=== PATIENT | male | born 1985 | race African-American/Black ===

== ENCOUNTER 2018-12-04 16:02 | Emergency (ER) | payer SELFPAY ==
[~2018-12-04] VITALS: Ht 172.7 cm; Wt 62.0 kg
[2018-12-04 16:08] VITALS: BP 145/76; PULSE 86; RESP 18; Ht 172.7 cm; Wt 62.0 kg
== END 2018-12-04 18:45 | disposition left against medical advice (07) ==
LOC: FTE 16:02
DX: Z53.21 Procedure and treatment not carried out due to patient leaving prior to being seen by health care provider (principal)

== ENCOUNTER 2018-12-14 16:02 | Emergency (ER) | payer OTHER ==
[~2018-12-14] VITALS: Ht 180.3 cm; Wt 68.4 kg
[2018-12-14 16:22] VITALS: BP 153/79; PULSE 99; RESP 18; Ht 180.3 cm; Wt 68.4 kg
[2018-12-14] MEDS ORDERED: LIDOCAINE 1% (MPF) 5 ML VIAL INFIL ONE (18:00)
[2018-12-14] MEDS ORDERED: TRIMETHOPRIM/SULFAMETHOX (DS) TAB PO ONE (18:00)
[2018-12-14] MEDS ORDERED: MUPIROCIN 2% 22 GM OINT TOP ONE (18:00)
[2018-12-14] MEDS ORDERED: CEFTRIAXONE 1 GM INJ IM ONE (18:00)
[2018-12-14] MEDS ORDERED: SULF1TAB31 PO (19:05)
[2018-12-14] MEDS ORDERED: CEPH-443 PO (19:05)
[2018-12-14] MEDS ORDERED: ELVI1TAB3 PO (19:19)
--- NOTE | 2018-12-14 21:30 | ERD ---
ER Documentation Chief Complaint Chief Complaint pt bib self with c/o "boils popping up all over body" x few days HPI 33 year-old [male] coming in today with Chief Complaint: Skin infection History of Present Illness: Patient coming in today due to skin infection. Reports "boils" on several parts of his body. Reports he has had abscesses before and had them drained. Denies any systemic symptoms, denies any other associated symptoms. Review of systems: All systems were reviewed and are negative except for what is indicated in the history of present illness. Past Medical History: HIV; patient reports not currently on antivirals for the past 4 months. 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 Medications Home Meds Active Scripts Elviteg/Tova/Emtric/Tenofo Ala (Genvoya Tablet) 1 Each Tablet, 1 EACH PO DAILY, #7 TAB Prov:IRMA VALENZUELAA V EVP GENERAL COUNSEL 12/14/18 Cephalexin* (Keflex*) 500 Mg Capsule, 500 MG PO QID for skin infection for 10 Days, CAP Prov:VALENZUELA,SARAH V EVP GENERAL COUNSEL 12/14/18 Sulfamethoxazole/Trimethoprim* (Bactrim Ds* Tablet) 1 Each Tablet, 1 TAB PO BID for skin infection for 10 Days, #14 TAB Prov:BIANCASARAH V EVP GENERAL COUNSEL 12/14/18 Allergies Allergies: Coded Allergies: No Known Allergy (Unverified , 12/14/18) PMhx/Soc Medical and Surgical Hx: pt denies Medical Hx, pt denies Surgical Hx Hx Miscellaneous Medical Probl: Yes (HIV) Hx Alcohol Use: No Hx Substance Use: Yes (Crystal Meth) Hx Tobacco Use: No Smoking Status: Never smoker FmHx Family History: diabetes; No coronary disease Physical Exam Vitals Vital Signs Date Temp Pulse Resp B/P (MAP) Pulse Ox O2 O2 Flow FiO2 Time Delivery Rate 12/14/18 99 18 153/79 99 16:22 (103) Physical Exam Const: No acute distress Head: Atraumatic, 3 possible abscesses noted to forehead and along frontal and posterior hairline, firm. no discharge, no erythema, no fluctuance, no cellulitis Eyes: Normal Conjunctiva ENT: Normal External Ears, Nose and Mouth. Neck: Full range of motion. No meningismus. Resp: Clear to auscultation bilaterally Cardio: Regular rate and rhythm, no murmurs Abd: Soft, non tender, non distended. Normal bowel sounds Skin: No petechiae or rashes; abscess noted to right abdominal area, positive purulent fluid draining, positive fluctuance, positive erythema, no cellulitis; abscess noted to left abdominal area, no purulent fluid draining, no erythema, no cellulitis; abscess noted to right chauhan, purulent draining, mild erythema, no cellulitis Back: No midline or flank tenderness Ext: No cyanosis, or edema Neur: Awake and alert Psych: Normal Mood and Affect Results 24 hrs Current Medications Medications Dose Sig/Penny Start Time Status Last (Trade) Ordered Route PRN Stop Time Admin Dose Reason Admin Mupirocin 3 applic ONCE ONCE 12/14/18 DC 12/14/18 (Bactroban) TOP 18:00 12/14/18 18:37 18:01 Ceftriaxone 1 gm ONCE ONCE 12/14/18 DC 12/14/18 Sodium IM 18:00 12/14/18 18:12 (Rocephin) 18:01 Lidocaine 2.1 ml ONCE ONCE 12/14/18 DC 12/14/18 (Xylocaine INFIL 18:00 12/14/18 18:11 1% (Mpf)) 18:01 1 tab ONCE ONCE 12/14/18 DC 12/14/18 Trimethoprim/ PO 18:00 12/14/18 18:11 18:01 Sulfamethoxaz ole (Bactrim (Ds)) Procedures/MDM ED course includes a thorough examination and history. ED course includes medications; ceftriaxone and Bactrim. ED course includes wound cultures. Low suspicion for life-threatening medical emergency or sepsis. Otherwise healthy patient presenting with constellation of symptoms likely representing multiple skin abscesses secondary to HIV infection as characterized by history, physical exam findings. Patient refused incision and drainage of abscesses, states he just wants antibiotics. Educated on risks and benefits of abscess drainage; still refuses. Reports he has not been on HIV medications for 4 months, desires community mental health social worker consult so he can get restarted. Patient reassessment at 1900: Wound care complete per order. Will apply dressings to wounds. Patient currently homeless so desires to have wounds cov ered up. Patient reassessment at 1945: Charge nurse to bedside. Patient reports desiring to want to stay until he is seen by elementary school social worker. states he does not want to be discharged yet. No respiratory distress and nontoxic. Patient educated on diagnoses, prescriptions, follow-up care, return precautions. Restarted patient on 1 week supply of his previous antiviral for HIV. Strict return precautions given for worsening condition; questions answered discharge. Disposition for discharge after community mental health social worker consult with followup in 2-3 days with PCP/clinic. Patient reassessment at 2100: Patient appears to have eloped. Patient previously given resources for HIV clinics in the [facility], by me. Departure Diagnosis: Primary Impression: Abscess of skin Site of cutaneous abscess: unspecified site Qualified Codes: L02.91 - Cutaneous abscess, unspecified Additional Impression: HIV (human immunodeficiency virus infection) HIV symptom status: unspecified Qualified Codes: B20 - Human immunodeficiency virus [HIV] disease Condition: Fair Patient Instructions: Abscess, Incision And Drainage Referrals: [facility] YOU HAVE RECEIVED A MEDICAL SCREENING EXAM AND THE RESULTS INDICATE THAT YOU DO NOT HAVE A CONDITION THAT REQUIRES URGENT TREATMENT IN THE EMERGENCY DEPARTMENT. FURTHER EVALUATION AND TREATMENT OF YOUR CONDITION CAN WAIT UNTIL YOU ARE SEEN IN YOUR DOCTORS OFFICE WITHIN THE NEXT 1-2 DAYS. IT IS YOUR RESPONSIBILITY TO MAKE AN APPOINTMENT FOR FOLOW-UP CARE. IF YOU HAVE A PRIMARY DOCTOR --you should call your primary doctor and schedule an appointment IF YOU DO NOT HAVE A PRIMARY DOCTOR YOU CAN CALL OUR PHYSICIAN REFERRAL HOTLINE AT IF YOU CAN NOT AFFORD TO SEE A PHYSICIAN YOU CAN CHOSE FROM THE FOLLOWING [facility] [address] [facility] [address] [facility] [facility] [address] [facility] [address] [facility] [address] [facility]. [facility]. [address] [facility]. [facility] YOU HAVE RECEIVED A MEDICAL SCREENING EXAM AND THE RESULTS INDICATE THAT YOU DO NOT HAVE A CONDITION THAT REQUIRES URGENT TREATMENT IN THE EMERGENCY DEPARTMENT. FURTHER EVALUATION AND TREATMENT OF YOUR CONDITION CAN WAIT UNTIL YOU ARE SEEN IN YOUR DOCTORS OFFICE WITHIN THE NEXT 1-2 DAYS. IT IS YOUR RESPONSIBILITY TO MAKE AN APPOINTMENT FOR FOLOW-UP CARE. IF YOU HAVE A PRIMARY DOCTOR --you should call your primary doctor and schedule and appointment IF YOU DO NOT HAVE A PRIMARY DOCTOR YOU CAN CALL OUR PHYSICIAN REFERRAL HOTLINE AT . IF YOU CAN NOT AFFORD TO SEE A PHYSICIAN YOU CAN CHOSE FROM THE FOLLOWING [facility]: [facility] [address] [place] [address] [facility] [address] [place] [address] [facility] [address] [place] [address] Additional Instructions: Call your primary care doctor TOMORROW for an appointment during the next 2-3 days.See the doctor sooner or return here if your condition worsens before your appointment time. Due to you refusing incision and drainage of multiple abscesses, strict follow- up is encouraged in the next 2-3 days. Returns if any symptoms of fever, chills, altered mental status, worsening infection. You will need to take 2 antibiotics for 10 days. Must take all doses. Must take medication as prescribed. We are giving Genvoya for a few days until you can get with HIV clinic next week. SARAH VALENZUELA NP Dec 14, 2018 21:30
== END 2018-12-15 06:20 | disposition left against medical advice (07) ==
LOC: FTE 16:02
DX: L02.211 Cutaneous abscess of abdominal wall (principal); B20 Human immunodeficiency virus [HIV] disease
CPT/HCPCS: 87070; 96372; J0696; Z7502; Z7610

== ENCOUNTER 2019-01-01 11:34 | Emergency (ER) | payer OTHER ==
[~2019-01-01] VITALS: Ht 180.3 cm; Wt 63.8 kg
[~2019-01-01 11:34] MED LIST: CEPH-443 PO; ELVI1TAB3 PO; SULF1TAB31 PO
[2019-01-01 12:13] VITALS: BP 135/81; PULSE 78; RESP 20; Ht 180.3 cm; Wt 63.8 kg
[2019-01-01] MEDS ORDERED: DIPHENHYDRAMINE 25 MG CAP PO ONE (15:30)
[2019-01-01] MEDS ORDERED: BEN25 PO (15:43)
[2019-01-01] MEDS ORDERED: MUPI15CR9 TOP (15:43)
[2019-01-01] MEDS ORDERED: TRIA60LO10 TOP (15:43)
--- NOTE | 2019-01-01 15:46 | ERD ---
ER Documentation Chief Complaint Chief Complaint skin itchiness/rashes; ear pain ; history of HIV ; needs manager social media TRISTAN Is a 33-year-old male patient who presents to the emergency room with complaint of rash on his upper neck and legs. He was also seen here recently for some lesions to his lower legs to which he received antibiotics. Patient states that the lesion on the right leg has healed the one on the left remains open. He is also requesting manager social media for to homeless senior living HIV treatment. ROS All systems reviewed and are negative except as per history of present illness. Medications Home Meds Active Scripts Diphenhydramine Hcl* (Benadryl*) 25 Mg Cap, 25 MG PO Q6 for itching for 7 Days, #28 CAP Prov:SAMEERA RASCON NP 01/01/19 Mupirocin Calcium* (Mupirocin*) 2% - 15 Gram Cream..g., 1 APPLIC TOP BID, #21 GM Prov:SAMEERA RASCON NP 01/01/19 Triamcinolone Acetonide (Triamcinolone Acetonide) 0.025% - 60 Ml Lotion, 1 APPLIC TOP BID for rash for 14 Days, #120 GM Prov:SAMEERA RASCON NP 01/01/19 Elviteg/Tova/Emtric/Tenofo Ala (Genvoya Tablet) 1 Each Tablet, 1 EACH PO DAILY, #7 TAB Prov:SARAH VALENZUELA NP 12/14/18 Cephalexin* (Keflex*) 500 Mg Capsule, 500 MG PO QID for skin infection for 10 Days, CAP Prov:SARAH VALENZUELA NP 12/14/18 Sulfamethoxazole/Trimethoprim* (Bactrim Ds* Tablet) 1 Each Tablet, 1 TAB PO BID for skin infection for 10 Days, #14 TAB Prov:SARAH VALENUZELA V GM VIDEO 12/14/18 Allergies Allergies: Coded Allergies: No Known Allergy (Unverified , 01/01/19) PMhx/Soc Medical and Surgical Hx: pt denies Surgical Hx Hx Miscellaneous Medical Probl: Yes (HIV) Hx Alcohol Use: No Hx Substance Use: Yes (Crystal Meth) Hx Tobacco Use: No Smoking Status: Never smoker Physical Exam Vitals Vital Signs Date Temp Pulse Resp B/P (MAP) Pulse Ox O2 O2 Flow FiO2 Time Delivery Rate 01/01/19 98.1 16:40 01/01/19 98.0 78 20 135/81 100 12:13 (99) Physical Exam Const: No acute distress Head: Atraumatic, dry cracking skin on scalp and forehead. Eyes: Normal Conjunctiva, no tearing, no drainage ENT: Normal External Ears, Nose and Mouth. Pharynx pink, no lesions, no exudate Neck: Full range of motion. No meningismus. Resp: Clear to auscultation bilaterally Cardio: Regular rate and rhythm, no murmurs Abd: Soft, non tender, non distended. Normal bowel sounds Skin: No petechiae, no bruising. Skin very dry and fragile. Macular papular non-erythematous rash to back of neck, exposed areas of the forearms, exposed lower legs. 2 x 2 centimeter ulcer to anterior right tibia, wound bed clean with 100% pink clean epithelial tissue. 3 x 3 cm ulcer to left anterior tibia, wound bed with dried hardened slough. Periwound skin of both wounds non- erythematous and intact. Back: No midline or flank tenderness Ext: No cyanosis, or edema Neur: Awake and alert Psych: Normal Mood and Affect Results 24 hrs Current Medications Medications Dose Sig/Penny Start Time Status Last (Trade) Ordered Route PRN Stop Time Admin Dose Reason Admin 25 mg ONCE ONCE 01/01/19 DC 01/01/19 Diphenhydrami PO 15:30 15:39 ne HCl 01/01/19 15:31 (Benadryl) Procedures/MDM This is a 33-year-old male patient who presents with complaint of rash. He is homeless. He is also seeking HIV treatment. States he has not had any HIV medications in over 6 months. States he stopped using drugs 1 week ago and he is now ready to get clean, "I want to live." DDx: Scabies, Kaposi's sarcoma, dehydration, ectopic dermatitis, contact dermatitis, syphilis. Low suspicion for scabies due to pattern and presentation of patient's rash. Rash on exposed parts of body only such as backside of neck, lower arms, lower legs. Patient states he sleeps outside in a monalisa environment. He is known to have environmental allergens. Low suspicion of HIV related Kaposi's sarcoma. As rash is not dark, not diffuse, patient is afebrile, normal vital signs. Low suspicion for ectopic dermatitis as there are no dry areas in flexors and folds or plaque type lesions. Low suspicion for syphilis as lesions are not on palms of hands, soles of feet, no lesions present in the groin or on penis, no lesions in mouth. Contact dermatitis most likely explanation for as macular papular erythematous lesions post areas of only. Patient was provided with [place] juice and water while in emergency room. Patient appreciative of care. Patient seen by manager social media provided with resources for HIV clinic as well as appointment tomorrow at [facility] for follow-up. Departure Diagnosis: Primary Impression: Homeless Additional Impressions: HIV (human immunodeficiency virus infection) Rash Condition: Stable Patient Instructions: Self-Care for Skin Rashes Additional Instructions: Use Benadryl every 4 hours as needed for itching, use caution as this medication may make you drowsy Use the mupirocin cream to lesions on lower legs Use triamcinolone cream on neck arms and legs on areas of rash Follow-up with HIV resources provided to you by hospital manager social media Stay well-hydrated Return to the emergency room immediately for any changing or worsening of your symptoms SAMEERA RASCON NP Jan 01, 2019 15:46
== END 2019-01-01 16:40 | disposition home or self-care (01) ==
LOC: FTE 11:34
DX: B20 Human immunodeficiency virus [HIV] disease (principal); Z59.0 Homelessness
CPT/HCPCS: Z7502; Z7610; 99283

== ENCOUNTER 2019-03-25 12:57 | Emergency (ER) | payer OTHER ==
[~2019-03-25] VITALS: Ht 180.3 cm; Wt 60.6 kg
[~2019-03-25 12:57] MED LIST changes: +BEN25 PO; +MUPI15CR9 TOP; +TRIA60LO10 TOP
[2019-03-25 13:06] VITALS: BP 130/71; PULSE 94; RESP 18; Ht 180.3 cm; Wt 60.6 kg
[2019-03-25] MEDS ORDERED: CEPH-443 PO (14:22)
[2019-03-25] MEDS ORDERED: SULF1TAB31 PO (14:22)
--- NOTE | 2019-03-25 14:55 | ERD ---
ER Documentation Chief Complaint Chief Complaint abscess: leg x1mth, abdomin x3 days & rash on legs x6mths HPI 33-year-old male presenting with abscess to abdomen and leg x4 days. Patient has a history of HIV. Patient has had no fevers. He has not been using medication on the site. He has been out of his HIV medication for the last 2 weeks and is attempting to obtain a primary doctor to refill his medications. He denies any other medical problems. She is currently homeless. NKDA. Surgical history denies. Social history uses meth. ROS All systems reviewed and are negative except as per history of present illness. Medications Home Meds Active Scripts Sulfamethoxazole/Trimethoprim* (Bactrim Ds* Tablet) 1 Each Tablet, 1 TAB PO BID, #14 TAB Prov:JUAN HINKLE PA-C 03/25/19 Cephalexin* (Keflex*) 500 Mg Capsule, 500 MG PO QID for 7 Days, CAP Prov:JUAN HINKLE PA-C 03/25/19 Diphenhydramine Hcl* (Benadryl*) 25 Mg Cap, 25 MG PO Q6 for itching for 7 Days, #28 CAP Prov:SAMEERA RASCON NP 01/01/19 Mupirocin Calcium* (Mupirocin*) 2% - 15 Gram Cream..g., 1 APPLIC TOP BID, #21 GM Prov:SAMEERA RASCON NP 01/01/19 Triamcinolone Acetonide (Triamcinolone Acetonide) 0.025% - 60 Ml Lotion, 1 APPLIC TOP BID for rash for 14 Days, #120 GM Prov:SAMEERA RASCON NP 01/01/19 Elviteg/Tova/Emtric/Tenofo Ala (Genvoya Tablet) 1 Each Tablet, 1 EACH PO DAILY, #7 TAB Prov:SARAH VALENZUELA NP 12/14/18 Cephalexin* (Keflex*) 500 Mg Capsule, 500 MG PO QID for skin infection for 10 Days, CAP Prov:SARAH VALENZUELA NP 12/14/18 Sulfamethoxazole/Trimethoprim* (Bactrim Ds* Tablet) 1 Each Tablet, 1 TAB PO BID for skin infection for 10 Days, #14 TAB Prov:SARAH VALENZUELA NP 12/14/18 Allergies Allergies: Coded Allergies: No Known Allergy (Unverified , 01/01/19) PMhx/Soc Hx Miscellaneous Medical Probl: Yes (HIV) Hx Alcohol Use: No Hx Substance Use: Yes (Crystal Meth) Hx Tobacco Use: No FmHx Family History: No diabetes, No coronary disease, No other Physical Exam Vitals Vital Signs Date Temp Pulse Resp B/P (MAP) Pulse Ox O2 O2 Flow FiO2 Time Delivery Rate 03/25/19 97.9 94 18 130/71 99 13:06 (90) Physical Exam GENERAL: The patient is well-appearing, well-nourished, in no acute distress CHEST: Clear to auscultation bilaterally. There are no rales, wheezes or rhonchi. HEART: Regular rate and rhythm. No murmurs, clicks, rubs or gallops. EXTREMITIES: Equal pulses bilaterally. There is no peripheral clubbing, c yanosis or edema. No focal swelling or erythema. Full range of motion. Grossly neurovascularly intact. NEUROLOGIC: Alert and oriented. Cranial nerves II through XII intact. Motor strength in all 4 extremities with 5 out of 5 strength. Sensation grossly intact. Normal speech and gait. SKIN: Indurated abscess noted to the abdomen with mild drainage. Indurated abscess to the left leg. No active bleeding or drainage. No fluctuance. Procedures/MDM ER course: Social service consult was requested to help patient obtain evaluation HIV clinic. MDM: 33-year-old male presenting with abscesses. Patient is to follow-up with HIV clinic to obtain his medication. I will discharge with antibiotics. Patient is told symptoms change or worsen to return immediately to the ER. All questions answered at discharge Departure Diagnosis: Primary Impression: Abscess Condition: Stable Patient Instructions: Abscess, Antiobiotic Treatment Only Referrals: [facility] (PCP) Additional Instructions: FOLLOW UP WITH YOUR PRIMARY CARE PHYSICIAN TOMORROW.Return to this facility if you are not improving as expected. JUAN HINKLE PA-C Mar 25, 2019 14:55
== END 2019-03-25 16:21 | disposition left against medical advice (07) ==
LOC: FTE 12:57
DX: L02.211 Cutaneous abscess of abdominal wall (principal); Z21 Asymptomatic human immunodeficiency virus [HIV] infection status
CPT/HCPCS: 99283

== ENCOUNTER 2019-04-26 12:55 | Emergency (ER) | payer OTHER ==
[~2019-04-26] VITALS: Ht 180.3 cm; Wt 62.7 kg
[2019-04-26 13:15] VITALS: BP 143/67; PULSE 98; RESP 20; Ht 180.3 cm; Wt 62.7 kg
[2019-04-26] MEDS ORDERED: KETOROLAC 60 MG INJ IM STA (14:18)
--- NOTE | 2019-04-26 14:24 | ERD ---
ER Documentation Chief Complaint Chief Complaint buttock abscess/bilat flank pain HPI Patient is a 33 years old male with past medical history of HIV presenting to the clinic for left gluteal abscess with low back pain since yesterday. Patient reports for event of body abscess in the past. Patient fever, chills, night sweats, urinary incontinence, fecal incontinence. ROS All systems reviewed and are negative except as per history of present illness. Medications Home Meds Active Scripts Sulfamethoxazole/Trimethoprim* (Bactrim Ds* Tablet) 1 Each Tablet, 1 TAB PO BID, #14 TAB Prov:JUAN HINKLE PA-C 03/25/19 Cephalexin* (Keflex*) 500 Mg Capsule, 500 MG PO QID for 7 Days, CAP Prov:JUAN HINKLE PA-C 03/25/19 Diphenhydramine Hcl* (Benadryl*) 25 Mg Cap, 25 MG PO Q6 for itching for 7 Days, #28 CAP Prov:SAMEERA RASCON NP 01/01/19 Mupirocin Calcium* (Mupirocin*) 2% - 15 Gram Cream..g., 1 APPLIC TOP BID, #21 GM Prov:SAMEERA RASCON NP 01/01/19 Triamcinolone Acetonide (Triamcinolone Acetonide) 0.025% - 60 Ml Lotion, 1 APPLIC TOP BID for rash for 14 Days, #120 GM Prov:SAMEERA RASCON NP 01/01/19 Elviteg/Tova/Emtric/Tenofo Ala (Genvoya Tablet) 1 Each Tablet, 1 EACH PO DAILY, #7 TAB Prov:SARAH VALENZUELA NP 12/14/18 Cephalexin* (Keflex*) 500 Mg Capsule, 500 MG PO QID for skin infection for 10 Days, CAP Prov:SARAH VALENZUELA NP 12/14/18 Sulfamethoxazole/Trimethoprim* (Bactrim Ds* Tablet) 1 Each Tablet, 1 TAB PO BID for skin infection for 10 Days, #14 TAB Prov:SARAH VALENZUELA NP 12/14/18 Allergies Allergies: Coded Allergies: No Known Allergy (Unverified , 01/01/19) PMhx/Soc HIV Medical and Surgical Hx: pt denies Surgical Hx History of Surgery: No Anesthesia Reaction: No Hx Neurological Disorder: No Hx Respiratory Disorders: No Hx Cardiac Disorders: No Hx Psychiatric Problems: No Hx Miscellaneous Medical Probl: No Hx Alcohol Use: No Hx Substance Use: Yes (Crystal Meth) Hx Tobacco Use: No Smoking Status: Never smoker FmHx Family History: No diabetes, No coronary disease, No other Physical Exam Vitals Vital Signs Date Temp Pulse Resp B/P (MAP) Pulse Ox O2 O2 Flow FiO2 Time Delivery Rate 04/26/19 99.2 98 20 143/67 100 13:15 (92) Physical Exam Const: No acute distress Head: Atraumatic Eyes: Normal Conjunctiva Resp: Clear to auscultation bilaterally Cardio: Regular rate and rhythm, no murmurs Abd: Soft, non tender, non distended. Normal bowel sounds Skin: Tender nodule on the left mid gluteal region without erythema, induration, perforation noted. Back: No midline or flank tenderness. Low back tenderness. Neur: Awake and alert Psych: Normal Mood and Affect Procedures/MDM Patient was seen and evaluated for left gluteal abscess without complication. Patient was given Rocephin 1 g and Toradol 60 mg IM in ED. patient denied I&D of abscess in that he would like to try antibiotic first. Patient is stable and ready for discharge. Follow-up with PCP. Patient will be discharged with clindamycin 300 mg p.o. 3 times daily X 10 days and ibuprofen. Patient was advised to take clindamycin while standing erect with full glass of water. Patient was advised to follow-up in 2 to 3 days if abscess does not improve or worsens for I&D. Departure Diagnosis: Primary Impression: Abscess Condition: Stable Patient Instructions: Abscess, Incision And Drainage Referrals: [facility] Additional Instructions: Patient advised to return to the ED immediately for new or worsening symptoms. Patient advised to follow up with primary care provider in the next 24-48 hours. Patient verbalized understanding and agrees with treatment plan and course of action. If patient has no primary care they may follow up with [facility] + [facility] [address] [place] [id number] or [facility] [address] [place] [address] or [facility] [address] [place] [address] NESTOR HAYWOOD PA-C Apr 26, 2019 14:24
[2019-04-26] MEDS ORDERED: CLIN300C10 PO (14:25)
[2019-04-26] MEDS ORDERED: IBUP800T48 PO (14:25)
[2019-04-26] MEDS ORDERED: CEFTRIAXONE 1 GM INJ IM ONE (14:30)
[2019-04-26] MEDS ORDERED: LIDOCAINE 1% (MDV) 20 ML INJ SC ONE (14:30)
== END 2019-04-26 14:53 | disposition home or self-care (01) ==
LOC: FTE 12:55
DX: L02.31 Cutaneous abscess of buttock (principal); Z21 Asymptomatic human immunodeficiency virus [HIV] infection status
CPT/HCPCS: 96372; J0696; J1885; Z7502; Z7610

== ENCOUNTER 2019-05-13 18:31 | Emergency (ER) | payer OTHER ==
[~2019-05-13] VITALS: Ht 170.2 cm; Wt 70.0 kg
[~2019-05-13 18:31] MED LIST changes: +AMOX500C2 PO; +CLIN300C10 PO; +GABA300C PO; +IBUP-1542 PO; +IBUP800T48 PO
[2019-05-13 18:37] VITALS: Ht 170.2 cm; Wt 70.0 kg
--- NOTE | 2019-05-13 18:47 | ERD ---
ER Documentation Chief Complaint Chief Complaint leg pain x 8 months HPI The patient is a 34-year-old male, presenting to the ER because of chronic bilateral lower extremity pain for more than 8 months, has been on his feet a lot. He denies fever, chills, neck pain, chest pain, dyspnea, abdominal pain, vomiting, dysuria, diarrhea, trauma. He smokes and drinks and does illicit drug Medical history: HIV, chronic low back pain Past surgical history: None ROS All systems reviewed and are negative except as per history of present illness. Medications Home Meds Active Scripts Gabapentin* (Neurontin*) 300 Mg Capsule, 300 MG PO BID, #20 CAP Prov:ANIKA KIM MD 05/13/19 Ibuprofen* (Motrin*) 800 Mg Tab, 800 MG PO Q6H PRN for PAIN AND OR ELEVATED TEMP, #30 TAB Prov:NESTOR HAYWOOD PA-C 04/26/19 Clindamycin Hcl* (Clindamycin Hcl*) 300 Mg Capsule, 300 MG PO TID for 10 Days, CAP Prov:NESTOR HAYWOOD PA-C 04/26/19 Sulfamethoxazole/Trimethoprim* (Bactrim Ds* Tablet) 1 Each Tablet, 1 TAB PO BID, #14 TAB Prov:JUAN HINKLE PA-C 03/25/19 Cephalexin* (Keflex*) 500 Mg Capsule, 500 MG PO QID for 7 Days, CAP Prov:JUAN HINKLE PA-C 03/25/19 Diphenhydramine Hcl* (Benadryl*) 25 Mg Cap, 25 MG PO Q6 for itching for 7 Days, #28 CAP Prov:SAMEERA RASCON NP 01/01/19 Mupirocin Calcium* (Mupirocin*) 2% - 15 Gram Cream..g., 1 APPLIC TOP BID, #21 GM Prov:SAMEERA RASCON NP 01/01/19 Triamcinolone Acetonide (Triamcinolone Acetonide) 0.025% - 60 Ml Lotion, 1 APPLIC TOP BID for rash for 14 Days, #120 GM Prov:SAMEERA RASCON NP 01/01/19 Elviteg/Tova/Emtric/Tenofo Ala (Genvoya Tablet) 1 Each Tablet, 1 EACH PO DAILY, #7 TAB Prov:SARAH VALENZUELA NP 12/14/18 Cephalexin* (Keflex*) 500 Mg Capsule, 500 MG PO QID for skin infection for 10 Days, CAP Prov:SARAH VALENZUELA [employer] 12/14/18 Sulfamethoxazole/Trimethoprim* (Bactrim Ds* Tablet) 1 Each Tablet, 1 TAB PO BID for skin infection for 10 Days, #14 TAB Prov:SARAH VALENZUELA [employer] 12/14/18 Allergies Allergies: Coded Allergies: No Known Allergy (Unverified , 01/01/19) PMhx/Soc History of Surgery: No Anesthesia Reaction: No Hx Neurological Disorder: No Hx Respiratory Disorders: No Hx Cardiac Disorders: No Hx Psychiatric Problems: No Hx Miscellaneous Medical Probl: No Hx Alcohol Use: No Hx Substance Use: Yes (Crystal Meth) Hx Tobacco Use: No Physical Exam Vitals Vital Signs Date Temp Pulse Resp B/P (MAP) Pulse Ox O2 O2 Flow FiO2 Time Delivery Rate 05/13/19 97.8 88 16 120/72 100 Room Air 20:02 (88) 05/13/19 97.8 86 18 127/72 100 Room Air 19:21 (90) 05/13/19 100.2 70 18 127/72 100 18:37 (90) Physical Exam Const: No acute distress. Head: Atraumatic. Eyes: Normal Conjunctiva. ENT: Normal External Ears, Nose and Mouth. Neck: Full range of motion. No meningismus. Resp: Clear to auscultation bilaterally. Cardio: Regular rate and rhythm. Abd: Soft, non distended, normal bowel sounds, non tender. Skin: No petechiae or rashes. Back: No midline or flank tenderness. Ext: Chronic excoriation, no calf tenderness, no vesicles/blisters Neur: Awake and alert. No focal deficit Psych: Normal Mood and Affect. Results 24 hrs Current Medications Medications Dose Sig/Penny Start Time Status Last (Trade) Ordered Route PRN Stop Time Admin Dose Reason Admin Gabapentin 300 mg ONCE ONCE 05/13/19 DC 05/13/19 (Neurontin) PO 19:00 19:49 05/13/19 19:01 25 mg ONCE ONCE 05/13/19 DC 05/13/19 Diphenhydrami IM 20:00 19:49 ne HCl 05/13/19 20:01 (Benadryl) Procedures/MDM MEDICAL MAKING DECISION: The patient is a 34-year-old male, presenting with c hronic bilateral lower extremity pain, probable neuropathy, treated with Neurontin with good response, is stable for outpatient follow-up The differential diagnoses considered include but are not limited to cellulitis, DVT, peripheral artery disease Departure Diagnosis: Primary Impression: Bilateral leg pain Condition: Good Comments He was discharged with Neurontin I discussed the findings with the patient. I advised the patient to follow-up with the primary physician in about 1-2 days, sooner if needed and return if any concern. Disclaimer: Inadvertent spelling and grammatical errors are likely due to EHR/dictation software use and do not reflect on the overall quality of patient care. Also, please note that the electronic time recorded on this note does not necessarily reflect the actual time of the patient encounter. ANIKA KIM MD May 13, 2019 18:47
[2019-05-13] MEDS ORDERED: GABAPENTIN 300 MG CAP PO ONE (19:00)
[2019-05-13] MEDS ORDERED: DIPHENHYDRAMINE 50 MG INJ IM ONE (20:00)
[2019-05-13 20:02] VITALS: BP 120/72; PULSE 88; RESP 16
== END 2019-05-13 20:28 | disposition home or self-care (01) ==
LOC: E/R 18:31
DX: M79.662 Pain in left lower leg (principal); M79.661 Pain in right lower leg
CPT/HCPCS: J1200; Z7610; 96372

== ENCOUNTER 2019-05-29 16:46 | Emergency (ER) | payer OTHER ==
[~2019-05-29] VITALS: Ht 175.3 cm; Wt 63.7 kg
[2019-05-29 16:55] VITALS: BP 126/79; PULSE 78; RESP 16; Ht 175.3 cm; Wt 63.7 kg
[2019-05-29] MEDS ORDERED: traMADol 50 MG TAB PO ONE (17:30)
== END 2019-05-29 18:53 | disposition home or self-care (01) ==
LOC: FTE 16:46
DX: H92.01 Otalgia, right ear (principal); F17.210 Nicotine dependence, cigarettes, uncomplicated; Z21 Asymptomatic human immunodeficiency virus [HIV] infection status; Z59.0 Homelessness
CPT/HCPCS: 99283